=== PATIENT | male | born 1955 | race Caucasian/White ===

== ENCOUNTER 2016-12-29 10:54 | Inpatient (IN) | payer OTHER, MEDICARE ==
[~2016-12-29] VITALS: Ht 180.3 cm; Wt 63.5 kg
[~2016-12-29 10:54] MED LIST: CYCLOPHOSPHAMIDE1 GM IV; CYMBALTA30 M1 PO; KLONOPIN0.5 M1 PO; LUNESTA3 M1 PO; PERCOCET 10-321 EACH PO; SILENOR6 M1 PO; STEROID IV
--- NOTE | 2016-12-29 11:08 | NUR ---
PT STATES THAT HE HAS HAD CHRONIC PAIN X 3 MONTHS IN HIS ABD. PT HAS HISTORY OF MS AND CHRONIC BACK PAIN. TAKES PERCOCET FOR PAIN. NAUSEA.PT ALSO STATES THAT HE HAS BLOOD IN HIS URINE
--- NOTE | 2016-12-29 11:23 | NUR ---
PA AT BEDSIDE
--- NOTE | 2016-12-29 11:25 | ED GI/GU/ABDOMINAL COMPLAINT ---
History of Present Illness General Chief Complaint: Abdominal Pain/Flank Pain Stated Complaint: ABD/FLANK PAIN,HEMATURIA Source: patient, family, old records Exam Limitations: no limitations Vital Signs & Intake/Output Vital Signs & Intake/Output Vital Signs Date Time Temp Pulse Resp B/P Pulse O2 O2 Flow FiO2 Ox Delivery Rate 12/29 1344 98.6 102 18 112/88 97 Room Air 12/29 1107 97.9 120 18 118/90 96 Room Air Allergies Coded Allergies: NO KNOWN ALLERGIES (NO) (06/05/16) Reconcile Medications Clonazepam (Klonopin) 0.5 MG TABLET 0.5 TAB PO TID NERVES (Reported) Cyclophosphamide (Unknown Strength) VIAL (Unknown Dose) IV Q30D MS (Reported) Doxepin HCl (Silenor) 6 MG TABLET 0.5 TAB PO QPM SLEEP (Reported) Duloxetine Hydrochloride (Cymbalta) 30 MG CAPSULE.DR 1 CAP PO BID NERVE PAIN (Reported) Eszopiclone (Lunesta) 3 MG TABLET 1 TAB PO QPM SLEEP (Reported) Oxycodone HCl/Acetaminophen (Percocet 10-325 MG Tablet) 1 EACH TABLET 1 TAB PO Q4H PRN PAIN (Reported) [STEROID] WITH CYTOXAN FOR MS (Reported) Triage Note: PT STATES THAT HE HAS HAD CHRONIC PAIN X 3 MONTHS IN HIS ABD. PT HAS HISTORY OF MS AND CHRONIC BACK PAIN. TAKES PERCOCET FOR PAIN. NAUSEA. Triage Nurses Notes Reviewed? yes Onset: Gradual Duration: worse persistent since (1 day, going for 3 month) Timing: recent history Quality/Severity: sharpness, severe, stabbing Severity Numbers: 9 Location: epigastric, periumbilical Radiation: back Activities at Onset: none Prior Abdominal Problems: none Past Sexual History: Unobtainable at this time No Modifying Factors: none HPI: Patient is a 61-year-old male with history of MS, cholecystectomy 7 years ago presenting to the emergency department with chief complaint of epigastric pain that's been on and off for the past 2-3 months worse since last night. He is currently on pain management and has been taking Percocet for his regular pain which has not been helping his abdominal pain. He has associated nausea but no vomiting. Denies any change in bowel habits. He reports tactile fevers last night, did not take anything for fever. Denies any urinary frequency urgency or dysuria. He does report hematuria that started 2 days ago. Remote history of kidney stones. He does report decreased by mouth intake In the past 3-4 days. No sick contacts or recent travel. He received an IV steroid infusion for his MS this past week. Denies any history of pancreatitis. He does not drink alcohol. (ARACELI KAN) Past History Travel History Traveled to [place] past 21 day No Medical History Any Pertinent Medical History? 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 No (ARACELI KAN) Review of Systems Review of Systems Constitutional: Reports: see HPI, fever. Comments Review of systems: See HPI, All other systems negative. Constitutional, no weight loss HEENT: No visual changes no sore throat no congestion Cardiovascular: No chest pain ,palpitation , orthopnea or ankle swelling Skin, no jaundice no rashes Respiratory: No dyspnea cough sputum or hemoptysis GI:no vomiting : No dysuria Muscle skeletal: no neck pain, Neurologic: No numbness no confusion no rodríguez Psych: No stress anxiety or depression,. Heme/endocrine: No bruising no bleeding no polyuria or polydipsia Immunology: No splenectomy or history of AIDS (ARACELI KAN) Physical Exam Physical Exam General Appearance: no apparent distress, alert, awake, thin Gastrointestinal: normal bowel sounds, soft, tenderness Comments: Well-developed well-nourished person in no acute distress HEENT:Pupils equally round and reactive to light and accommodation. Nose is atraumatic. Neck: Normal inspection, full range of motion Back: Right CVA tenderness only, Full range of motion Cardiovascular: Regular rate and rhythms no murmurs rubs or gallops, normal JVP Respiratory: Chest nontender. No respiratory distress.breath sounds clear to auscultation bilaterally Abdomen: Soft, thin, nontender to palpation in the epigastric region, no rebound or guarding. Nondistended, no appreciable organomegaly. Normal bowel sounds. No ascites. No palpable masses. Extremity: No edema Neuro: Alert oriented x3 Skin: No appreciable rash on exposed skin, skin is warm and dry. Psych: Mood and affect is normal, memory and judgment is normal. Core Measures ACS in differential dx? No Severe Sepsis Present: No Septic Shock Present: No (NILAY RACHEL,ARACELI) Progress Differential Diagnosis: UTI/pyelo, choledocholithiasis, cholangitis, pancreatitis, dehydration, electrolyte abnormality, gastritis, multiple sclerosis flare Plan of Care: Orders Procedure Date/time Status Nothing by Mouth 12/29 D Active OXYGEN SETUP (GEN) 12/29 144 Active Saline Lock 12/29 1447 Active Admit to inpatient 12/29 1447 Active Vital Signs 12/29 1447 Active Activity/Ambulation 12/29 1447 Active Code Status 12/29 1447 Active Patient Data 12/29 1445 Active LACTIC ACID 12/29 1425 Complete Add-on Test (ER Only) 12/29 1313 Active BLOOD CULTURE 12/29 1225 Active EKG 12/29 1219 Active Add-on Test (ER Only) 12/29 1218 Active TROPONIN LEVEL 12/29 1138 Complete TRIGLYCERIDES 12/29 1138 Complete DIRECT BILIRUBIN 12/29 1138 Complete LIPASE 12/29 1125 Complete LACTIC ACID 12/29 1125 Complete COMPREHENSIVE METABOLIC PANEL 12/29 1125 Complete CBC WITHOUT DIFFERENTIAL 12/29 1125 Complete AMYLASE 12/29 1125 Complete URINALYSIS 12/29 1109 Complete Laboratory Tests 12/29/16 1439: Lactic Acid 0.8 12/29/16 1416: Urinalysis LIGHT H, Urine Color INNA, Urine Clarity CLEAR, Urine pH 7.0, Ur Specific [place] 1.020, Urine Protein TRACE H, Urine Ketones NEG, Urine Nitrite NEG, Urine Bilirubin POS@ICTO H, Urine Urobilinogen 1.0, Ur Leukocyte Esterase NEG, Ur Microscopic SEDIMENT EXAMINED, Urine RBC 1-3, Urine WBC RARE, Ur Epithelial Cells FEW, Urine Bacteria RARE H, Urine Mucus FEW, Urine Hemoglobin TRACE-INTACT H, Urine Glucose NEG 12/29/16 1138: Anion Gap 14, Estimated GFR 56 L, BUN/Creatinine Ratio 17.7, Glucose 136 H, Lactic Acid 1.3, Calcium 9.5, Total Bilirubin 3.9 H, Direct Bilirubin 3.0 H, AST 178 H, ALT 400 H, Alkaline Phosphatase 132 H, Troponin I < 0.01, Total Protein 7.0, Albumin 4.0, Globulin 3.0, Albumin/Globulin Ratio 1.3, Triglycerides 114, Amylase 529 H, Lipase 2962 H, CBC w Diff NO MAN DIFF REQ, RBC 4.96, MCV 92.5, MCH 30.7, RDW 14.7 H, MPV 9.1, Gran % 87.7 H, Lymphocytes % 3.8 L, Monocytes % 7.8, Eosinophils % 0.5, Basophils % 0.2, Absolute Granulocytes 12.5 H, Absolute Lymphocytes 0.5 L, Absolute Monocytes 1.1 H, Absolute Eosinophils 0.1, Absolute Basophils 0, PUBS MCHC 33.2 Microbiology 12/29 1339 BLOOD: Blood Culture - RECD 12/29 1305 BLOOD: Blood Culture - RECD Diagnostic Imaging: Viewed by Me: CT Scan, Ultrasound. Discussed w/RAD: CT Scan, Ultrasound. Radiology Impression: PATIENT: LACEY SAUCEDA PRESENT AGE: 61 PATIENT ACCOUNT NO: [id number] : 54 LOCATION: [facility] ORDERING PHYSICIAN: ARACELI RACHEL SERVICE DATE: 12/29/16 EXAM TYPE: CAT - CT ABD & PELVIS W/O IV CONTRAS EXAMINATION: CT ABDOMEN AND PELVIS WITHOUT CONTRAST CLINICAL INFORMATION: 61-year-old man with flank pain and hematuria. COMPARISON: 04/09/2015 CT TECHNIQUE: Multidetector volumetric imaging was performed from the superior aspect of the liver through the pubic symphysis. Sagittal and coronal reformatted images were obtained on the technologist's workstation. DLP: 258 mGy-cm FINDINGS: There is centrilobular emphysema seen at the lung bases with a large bulla at the right base. Multiple nonobstructive calculi are again seen within both kidneys including a 1 cm calculus in the left lower pole and a 2 mm calculus in the right midpole. There is perinephric stranding, but no hydroureteronephrosis on either side. A hypodense lesion in the left lobe of the liver is again noted and likely reflects a cyst. The spleen , pancreas, and right adrenal remain normal in their noncontrast appearance. There is mild fullness of the left adrenal gland. There is at least one stone in an otherwise noninflamed gallbladder. Nondilated loops of large and small bowel are unremarkable in appearance. The appendix and terminal ileum are not inflamed. There is mild prostatomegaly. The bladder is normal in appearance. There is a large Schmorl's node at the superior L5 endplate and there has been prior L5-S1 interbody fusion. IMPRESSION: Stable CT appearance of the abdomen, again demonstrating multiple nonobstructive renal calculi. No evidence of an acute intra-abdominal process. DICTATED BY: JUSTO PIÑA MD DATE/TIME DICTATED:1229 PROFESSOR OF VIOLIN:KELLE DATE/TIME TRANSCRIBED:12/29/161229 CONFIDENTIAL, DO NOT COPY WITHOUT APPROPRIATE AUTHORIZATION. <Electronically signed in Other Vendor System> Initial ED EKG: SINUS RHYTHM AT 88 BPM, LEFT AXIS DEVIATION Prior EKG: unchanged Comments: 12/29/2016 12:38:13 PM patient informed of all lab work results, still pending CT and ultrasound results. He does have pancreatitis with elevation in LFTs and bilirubin. So pending direct bili and triglyceride level. Patient does have remote history of cholecystectomy, patient can have residual stones. Secondary to elevation of white blood cell count, reports of fevers and elevated bilirubin patient will be treated prophylactically with Unasyn at this time. Pain is controlled after IV fluids and morphine. 12/29/2016 1:15:[address] does not show any acute intraductal stone. Direct bilirubin is elevated, triglyceride levels within normal range. STILL pending ultrasound results. 12/29/2016 2:40:42 PM patient pain is under control. I spoke with Dr. Vu, patient will be admitted to medicine for pancreatitis. He is concerned about a residual stone in the common bile duct although none noted on imaging today. Patient was noted with Unasyn, pain controlled. [facility] would be an MRCP at this time. Dr. Vu would like to keep this patient admitted to [facility] and if needed they will do an ERCP as MRI is gone for today and not back until Saturday. Patient aware of this plan and agreeable and compliant. 12/29/2016 2:41:42 PM spoke with radiologist who read the report, he does report that patient has a gallbladder which is somewhat conflicting with history of cholecystectomy in 2009. Further clarification needed. (ARACELI KAN) Departure Departure Time of Disposition: 6 Disposition: STILL A PATIENT Condition: Stable Clinical Impression Primary Impression: Pancreatitis Qualifiers: Chronicity: acute Pancreatitis type: unspecified pancreatitis type Acute pancreatitis complication: unspecified Qualified Code: K85.90 - Acute pancreatitis without necrosis or infection, unspecified Referrals: Lashell MARK MD (PCP/Family) Departure Forms: Customer Survey General Discharge Information Admission Note Spoke With: NEENA ALDANA MD Documentation of Exam: Documentation of any treatments & extenuating circumstances including Concerns Regarding Discharge (functional status, medication knowledge or non-compliance, living conditions, etc.) that warrant an admission rather than observation: Patient requiring IV hydration, nothing by mouth status, GI consultation, patient will likely require MRCP or ERCP. (ARACELI KAN) PA/RESIDENT CARE SPEC Co-Sign Statement Statement: ED Attending supervision documentation- x I saw and evaluated the patient. I have also reviewed all the pertinent lab results and diagnostic results. I agree with the findings and the plan of care as documented in the PA's/RESIDENT CARE SPEC's documentation. [] I have reviewed the ED Record and agree with the PA's/RESIDENT CARE SPEC's documentation. [] Additions or exceptions (if any) to the PAs/RESIDENT CARE SPEC's note and plan are summarized below: [] (SAI WOO MD) Critical Care Note Critical Care Note Critical Care Time: 30-74 min (ARACELI KAN)
--- NOTE | 2016-12-29 11:32 | NUR ---
PT EVALUATED AND IV PLACED, PT STATES THAT LAST BM WAS THIS AM AND NORMAL FOR HIM. DENIES ABD PAIN ON LIGHT PALPATION.
--- NOTE | 2016-12-29 11:38 | NUR ---
PT MEDICATED AT THIS TIME FOR 7 ABD PAIN
--- NOTE | 2016-12-29 11:41 | NUR ---
BLOOD DRAWN AND SENT TO LAB BY THIS MST (BLUE, SST, IZAGUIRRE, PINK, LAV)
[2016-12-29 11:50] LABS: ABSOLUTE BASOPHIL COUNT 0 /CUMM (0.0-0.2); ABSOLUTE EOSINOPHIL COUNT 0.1 /CUMM (0.0-0.7); ABSOLUTE GRANULOCYTE CT 12.5 /CUMM (1.4-6.5); ABSOLUTE LYMPH COUNT 0.5 /CUMM (1.2-3.4); ABSOLUTE MONOCYTE COUNT 1.1 /CUMM (0.10-0.60); BASOPHIL % 0.2 % (0.0-2.0); EOSINOPHIL % 0.5 % (0-5); GRANULOCYTE % 87.7 % (42.2-75.2); MEAN CORPUSCULAR HGB 30.7 PG (27.0-31.0); MEAN CORPUSCULAR HGB CONC 33.2 G/DL (33.0-37.0); MEAN CORPUSCULAR VOLUME 92.5 FL (80.0-94.0); MEAN PLATELET VOLUME 9.1 FL (7.4-10.4); PLATELET COUNT 206 /CUMM (130-400); RBC DISTRIBUTION WIDTH 14.7 % (11.5-14.5); RED BLOOD CELL CT 4.96 /CUMM (4.70-6.10)
--- NOTE | 2016-12-29 12:08 | NUR ---
PT TO CT SCAN
[2016-12-29 12:22] LABS: HEMATOCRIT 45.8 % (42-52); WHITE BLOOD CELL COUNT 14.3 /CUMM (4.8-10.8)
--- NOTE | 2016-12-29 12:36 | NUR ---
PT TO GET IV ABT AFTER BC X 2 DRAWN AND SENT.
--- NOTE | 2016-12-29 12:41 | CT SCAN REPORT ---
EXAMINATION: CT ABDOMEN AND PELVIS WITHOUT CONTRAST CLINICAL INFORMATION: 61-year-old man with flank pain and hematuria. COMPARISON: 04/09/2015 CT TECHNIQUE: Multidetector volumetric imaging was performed from the superior aspect of the liver through the pubic symphysis. Sagittal and coronal reformatted images were obtained on the technologist's workstation. DLP: 258 mGy-cm FINDINGS: There is centrilobular emphysema seen at the lung bases with a large bulla at the right base. Multiple nonobstructive calculi are again seen within both kidneys including a 1 cm calculus in the left lower pole and a 2 mm calculus in the right midpole. There is perinephric stranding, but no hydroureteronephrosis on either side. A hypodense lesion in the left lobe of the liver is again noted and likely reflects a cyst. The spleen, pancreas, and right adrenal remain normal in their noncontrast appearance. There is mild fullness of the left adrenal gland. There is at least one stone in an otherwise noninflamed gallbladder. Nondilated loops of large and small bowel are unremarkable in appearance. The appendix and terminal ileum are not inflamed. There is mild prostatomegaly. The bladder is normal in appearance. There is a large Schmorl's node at the superior L5 endplate and there has been prior L5-S1 interbody fusion. IMPRESSION: Stable CT appearance of the abdomen, again demonstrating multiple nonobstructive renal calculi. No evidence of an acute intra-abdominal process.
--- NOTE | 2016-12-29 13:05 | NUR ---
PT TO US AT THIS TIME
--- NOTE | 2016-12-29 13:06 | NUR ---
SECOND SET CULTURES TO BE OBTAINED WHEN PT RETURNS FROM US
--- NOTE | 2016-12-29 13:42 | NUR ---
IV UNASYN INFUSING
--- NOTE | 2016-12-29 14:03 | ULTRASOUND REPORT ---
EXAMINATION: US ABDOMEN LIMITED CLINICAL INFORMATION: 61-year-old man with epigastric pain. COMPARISON: 12/29/[address] TECHNIQUE: Real-time imaging of the right upper quadrant abdominal viscera. FINDINGS: PANCREAS: Normal. LIVER: Multiple simple cysts are seen within the liver ranging up to 3.3 cm in diameter. Overall, there is increased echogenicity of the liver, consistent with mild fatty infiltration. There is no intrahepatic bile duct dilation. GALLBLADDER: There is a 1 cm nonobstructive calculus seen within the gallbladder. There is borderline thickening of the gallbladder wall, which measures about 3 mm. There is no pericholecystic fluid or sonographic Stewart's sign. COMMON BILE DUCT: Normal in caliber measuring 0.5 cm in diameter. RIGHT KIDNEY: Normal. No hydronephrosis. No renal calculi or focal parenchymal lesions. Incidental note is made of a 1 cm cyst in the lower pole. The kidney measures 10.9 cm in maximum dimension. FREE FLUID: None. IMPRESSION: There is cholelithiasis without convincing sonographic evidence of acute cholecystitis.
--- NOTE | 2016-12-29 14:20 | NUR ---
KCL INFUSING AT 100ML/HR FOR K+ OF 3.2. URINE SENT
--- NOTE | 2016-12-29 15:03 | NUR ---
PT AWARE THAT HE IS TO BE ADMITTED , PT RESTING ON STRETCHER TALKING ON PHONE AT THIS TIME
--- NOTE | 2016-12-29 15:21 | NUR ---
IV NS INFUSING AT 500 ML/HR
--- NOTE | 2016-12-29 15:26 | NUR ---
PT RESTING ON STRETCHER WITH LIGHTS DIMMED WATCHING TV AT THIS TIME, MID ABD PAIN 11/06, DENIES NAUSEA AT THIS TIME.
--- NOTE | 2016-12-29 15:53 | NUR ---
HOUSE STAFF AT BEDSIDE
--- NOTE | 2016-12-29 16:26 | NUR ---
PT HAS ROOM #210-2
--- NOTE | 2016-12-29 16:36 | NUR ---
CALLED FOR REPORT, ON HOLD FOR A COUPLE OF MINUTES WILL TRY AGAIN IN A FEW.
--- NOTE | 2016-12-29 16:42 | History & Physical ---
SUMAN SAHA,[facility] 12/29/16 1633: General Information and HPI MD Statement: I have seen and personally examined LACEY SAUCEDA and documented this H&P. The patient is a 61 year old M who presented with a patient stated chief complaint of [ABDOMINAL PAIN]. Source of Information: patient, EMS Exam Limitations: no limitations History of Present Illness: Patient is a 61 YO M with PMH significant for MS for the past 14yrs (follows ), chronic back pain came to the ER with intense abdominal pain for the past 24hrs. He has been experiencing abdominal pain since a long time which apparently worsened. He describes it radiating from epigastric region to the back. He does report nausea and anorexia, fever & chills, denies any shortness of breath. He denies any recent travel, eating outside, diarrhea. He never consumed alcohol / no substance abuse. Allergies/Medications Allergies: Coded Allergies: NO KNOWN ALLERGIES (NO) (06/05/16) Compliance With Home Meds: GOOD Past History Travel History Traveled to [place] past 21 day No Medical History Neurological: multiple sclerosis EENT: NONE Cardiovascular: NONE Respiratory: NONE Gastrointestinal: NONE Hepatic: NONE Renal: NONE Musculoskeletal: chronic back pain Psychiatric: NONE Endocrine: NONE Blood Disorders: NONE Cancer(s): NONE MANAGER LOCATION/Reproductive: NONE History of CDIFF: No Isolation History: Standard Surgical History Surgical History: CHOLECYSTECTOMY, KIDNEY STONES, PENUMOTHORAX 1988, BACK SURGERY Past Family/Social History Family History Relations & Conditions if any Relation not specified for: *No pertinent family history Psychosocial History Where do you live? Home Who Do You Live With? spouse Services at Home: None ETOH Use: denies use Illicit Drug Use: denies illicit drug use Functional Ability ADLs Independent: dressing, eating, toileting, bathing. Ambulation: independent IADLs Independent: shopping, housework, finances, food prep, telephone, transportation , medication admin. Sexual History Past Sexual History Unobtainable at this time Employment History Employment Employed Review of Systems Review of Systems Constitutional: Reports: see HPI. EENTM: Reports: see HPI. Cardiovascular: Reports: no symptoms. Respiratory: Reports: cough, sputum production. GI: Reports: abdominal pain, nausea. Denies: vomiting. Genitourinary: Reports: see HPI. Musculoskeletal: Reports: see HPI. Skin: Reports: see HPI. Neurological/Psychological: Reports: see HPI. Hematologic/Endocrine: Reports: see HPI. Immunologic/Allergic: Reports: see HPI. All Other Systems: Reviewed and Negative Exam & Diagnostic Data Last 24 Hrs of Vital Signs/I&O Vital Signs Date Time Temp Pulse Resp B/P Pulse O2 O2 Flow FiO2 Ox Delivery Rate 12/29 1526 97.9 98 18 143/84 98 Room Air 12/29 1344 98.6 102 18 112/88 97 Room Air 12/29 1107 97.9 120 18 118/90 96 Room Air Intake & Output 12/29 1600 12/29 0800 12/29 0000 Intake Total 2000 Output Total 420 Balance 1580 Intake, IV 2000 Output, Urine 420 Patient 60.328 kg Weight Physical Exam General Appearance Alert, Oriented X3, Cooperative Skin No Rashes, No Breakdown HEENT Atraumatic, PERRLA, EOMI Neck Supple, No JVD Cardiovascular Regular Rate, Normal S1, Normal S2, No Murmurs Lungs Clear to Auscultation, Normal Air Movement Abdomen Soft, No Tenderness, MILD EPIGASTRIC TENDERNESS, NO CVA TENDERNESS. NO REBOUND TENDERNESS. Neurological Normal Gait, Normal Speech Extremities No Clubbing, No Cyanosis, No Edema Vascular Normal Pulses, Pulses Symmetrical Body Front and Back (Adult) 1) ABDOMINAL PAIN Last 24 Hrs of Labs/Domo: Laboratory Tests 12/29/16 1439: Lactic Acid 0.8 12/29/16 1416: Urinalysis LIGHT H, Urine Color INNA, Urine Clarity CLEAR, Urine pH 7.0, Ur Specific [place] 1.020, Urine Protein TRACE H, Urine Ketones NEG, Urine Nitrite NEG, Urine Bilirubin POS@ICTO H, Urine Urobilinogen 1.0, Ur Leukocyte Esterase NEG, Ur Microscopic SEDIMENT EXAMINED, Urine RBC 1-3, Urine WBC RARE, Ur Epithelial Cells FEW, Urine Bacteria RARE H, Urine Mucus FEW, Urine Hemoglobin TRACE-INTACT H, Urine Glucose NEG 12/29/16 1138: Anion Gap 14, Estimated GFR 56 L, BUN/Creatinine Ratio 17.7, Glucose 136 H, Lactic Acid 1.3, Calcium 9.5, Total Bilirubin 3.9 H, Direct Bilirubin 3.0 H, AST 178 H, ALT 400 H, Alkaline Phosphatase 132 H, Troponin I < 0.01, Total Protein 7.0, Albumin 4.0, Globulin 3.0, Albumin/Globulin Ratio 1.3, Triglycerides 114, Amylase 529 H, Lipase 2962 H, CBC w Diff NO MAN DIFF REQ, RBC 4.96, MCV 92.5, MCH 30.7, RDW 14.7 H, MPV 9.1, Gran % 87.7 H, Lymphocytes % 3.8 L, Monocytes % 7.8, Eosinophils % 0.5, Basophils % 0.2, Absolute Granulocytes 12.5 H, Absolute Lymphocytes 0.5 L, Absolute Monocytes 1.1 H, Absolute Eosinophils 0.1, Absolute Basophils 0, PUBS MCHC 33.2 Microbiology 12/29 1339 BLOOD: Blood Culture - RECD 12/29 1305 BLOOD: Blood Culture - RECD Diagnostic Data EKG Results NSR Assessment/Plan Assessment: Patient is a 61 YO M with PMH significant for MS for the past 14yrs (follows ), chronic back pain, nephrolithiasis came to the ER with intense abdominal pain for the past 24hrs. ER Course Vital Signs T - 97.6, HR 120, BP 118/90mmHg on room air. Significant labs white count 14.3, Lipase of 2900, k of 3.2, Cr 1.3 LFT's show total bili of 3.9, direct bili 3.0, AST 178, ALT 400, ALP 132 Abdominal ultrasound IMPRESSION: There is cholelithiasis without convincing sonographic evidence of acute cholecystitis. CT abdomen and pelvis IMPRESSION: Stable CT appearance of the abdomen, again demonstrating multiple nonobstructive renal calculi. No evidence of an acute intra-abdominal process. Pancreatitis - suspected secodary to CBD stone * Clinical picture with elevated lipase - 2/3 criteria postive * Currently on RL @ 200ml/hr and NPO * Suspected secondary to gall stones in the setting of elevated liver enzymes, nonalcoholic picture. * GI consult placed * IF any signs of sepsis evident - need ERCP stat * avoid hepatotoxic drugs * Need to reassess need for fluids in the am. Anxiety/insomnia * On clonapin TID, Doxepin, Duloxetin, Zolpidem tartarate - we will continue PO meds for now. DVT Prophylaxis * SC heparin Code Status * Full Code As Ranked By This Provider Problem List: 1. Pancreatitis Qualifiers Chronicity: acute Pancreatitis type: unspecified pancreatitis type Acute pancreatitis complication: unspecified Qualified Code: K85.90 - Acute pancreatitis without necrosis or infection, unspecified Core Measures/Miscellaneous Acute Coronary Syndrome ACS Diagnosis: No Cerebrovascular Accident CVA/TIA Diagnosis: No Congestive Heart Failure CHF Diagnosis: No Venous Thromboembolism VTE Risk Factors: Immobility, paresis No [facility] VTE prophylaxis d/t: No contraindications No VTE Pharm Prophylaxis d/t: No contraindications VTE Diagnosis: No VTE Type: NONE VTE Confirmed by (Test): NONE Severe Sepsis Severe Sepsis Present: No Septic Shock Septic Shock Present: No Miscellaneous Documentation Attending Case Discussed With: NEENA ALDANA MD Primary Care Physician: Lashell MARK MD Patient sees these Specialists Dr.Guarnaica Montes Level of Patient Care: General Medicine NEENA LADANA MD 12/29/16 1717: Attending MD Review Statement Attending Statement Attending MD Statement: examined this patient, discuss w/resident/PA/APPLICATION INTEGRATION ENGINEER, agreed w/resident/PA/APPLICATION INTEGRATION ENGINEER, reviewed EMR data (avail), discussed with nursing, reviewed images, amended to note Attending Assessment/Plan: 61-year-old male with past medical history significant for multiple sclerosis, chronic kidney disease stage III, chronic back pain on Percocet, status post cholecystectomy 7 years ago who is presenting with abdominal pain. Patient has been getting these intermittent pain with increasing frequency in from last 1 week the pain has been almost constant specially in the last 1-2 days it has been very excruciating. Patient rates the pain as 8 out of 10 and describes it as sharp. He is describing the pain as radiating to his back. He was nauseous but no vomiting. He also reports feeling warm but did not check his temperature. He had no appetite. He also reports dark urine. He denies eating out or any traveling. In the emergency room patient found to have abnormal LFTs and normal lipase. He also had leukocytosis although no fevers documented in the emergency room. Patient received morphine in the emergency room and currently pain-free. Vital Signs Date Time Temp Pulse Resp B/P Pulse O2 O2 Flow FiO2 Ox Delivery Rate 12/29 1654 98.0 88 18 140/78 98 Room Air 12/29 1526 97.9 98 18 143/84 98 Room Air 12/29 1344 98.6 102 18 112/88 97 Room Air 12/29 1107 97.9 120 18 118/90 96 Room Air on exam; aox3, nad. cv; s1,s2, rrr. resp; clear abd; soft, nt, bs+ ext; no edema. Laboratory Tests 12/29 12/29 1439 1416 Chemistry Lactic Acid (0.7 - 2.1 mmol/L) 0.8 Urines Urinalysis LIGHT H Urine Color (YEL,AMB,STR) INNA Urine Clarity (CLEAR) CLEAR Urine pH (5.0 - 8.0) 7.0 Ur Specific [place] (1.001 - 1.035) 1.020 Urine Protein (NEG,<30 MG/DL) TRACE H Urine Ketones (NEG) NEG Urine Nitrite (NEG) NEG Urine Bilirubin (NEG) POS@ICTO H Urine Urobilinogen (0.1 - 1.0 EU/dl) 1.0 Ur Leukocyte Esterase (NEG) NEG Ur Microscopic SEDIMENT EXAMINED Urine RBC (0 - 5 /HPF) 1-3 Urine WBC (0 - 2 /HPF) RARE Ur Epithelial Cells (NONE,FEW) FEW Urine Bacteria (NEG/NONE) RARE H Urine Mucus (FEW,NONE) FEW Urine Hemoglobin (NEG) TRACE-INTACT H Urine Glucose (N MG/DL) NEG 12/29 1138 Chemistry Sodium (137 - 145 mmol/L) 143 Potassium (3.5 - 5.1 mmol/L) 3.2 L Chloride (98 - 107 mmol/L) 102 Carbon Dioxide (22 - 30 mmol/L) 28 Anion Gap (5 - 16) 14 BUN (9 - 20 mg/dL) 23 H Creatinine (0.7 - 1.2 mg/dL) 1.3 H Estimated GFR (>60 ml/min) 56 L BUN/Creatinine Ratio (7 - 25 %) 17.7 Glucose (65 - 99 mg/dL) 136 H Lactic Acid (0.7 - 2.1 mmol/L) 1.3 Calcium (8.4 - 10.2 mg/dL) 9.5 Total Bilirubin (0.2 - 1.3 mg/dL) 3.9 H Direct Bilirubin (< 0.4 mg/dL) 3.0 H AST (17 - 59 U/L) 178 H ALT (21 - 72 U/L) 400 H Alkaline Phosphatase (< 127 U/L) 132 H Troponin I (<0.11 ng/ml) < 0.01 Total Protein (6.3 - 8.2 g/dL) 7.0 Albumin (3.5 - 5.0 g/dL) 4.0 Globulin (1.9 - 4.2 gm/dL) 3.0 Albumin/Globulin Ratio (1.1 - 2.2 %) 1.3 Triglycerides (<150 mg/dL) 114 Amylase (30 - 110 U/L) 529 H Lipase (23 - 300 U/L) 2962 H Hematology CBC w Diff NO MAN DIFF REQ WBC (4.8 - 10.8 /CUMM) 14.3 H RBC (4.70 - 6.10 /CUMM) 4.96 Hgb (14.0 - 18.0 G/DL) 15.2 Hct (42 - 52 %) 45.8 MCV (80.0 - 94.0 FL) 92.5 MCH (27.0 - 31.0 PG) 30.7 RDW (11.5 - 14.5 %) 14.7 H Plt Count (130 - 400 /CUMM) 206 MPV (7.4 - 10.4 FL) 9.1 Gran % (42.2 - 75.2 %) 87.7 H Lymphocytes % (20.5 - 51.1 %) 3.8 L Monocytes % (1.7 - 9.3 %) 7.8 Eosinophils % (0 - 5 %) 0.5 Basophils % (0.0 - 2.0 %) 0.2 Absolute Granulocytes (1.4 - 6.5 /CUMM) 12.5 H Absolute Lymphocytes (1.2 - 3.4 /CUMM) 0.5 L Absolute Monocytes (0.10 - 0.60 /CUMM) 1.1 H Absolute Eosinophils (0.0 - 0.7 /CUMM) 0.1 Absolute Basophils (0.0 - 0.2 /CUMM) 0 PUBS MCHC (33.0 - 37.0 G/DL) 33.2 All imaging studies reviewed. A/P; 61-year-old male with past medical history significant for multiple sclerosis, chronic back pain on Percocet, status post cholecystectomy 7 years ago admitted with abdominal pain and nausea, abnormal LFTs, abnormal lipase as well as leukocytosis likely secondary to acute pancreatitis with possible cholangitis or retained stone. Patient admitted to medicine floor. He will be hydrated with IV fluids. He will be kept nothing by mouth and will be treated symptomatically for pain management as well as nausea. GI will be consulted. Patient will need MRCP and if becomes symptomatic or septic then might require urgent ERCP. Will avoid any hepatotoxic medications. Continue the rest of his home meds. DVT prophylaxis: Heparin subcutaneous. Patient is a full code CEE STEIN MDTHA 12/29/16 1244: General Information and HPI Allergies/Medications Home Med list Amoxicillin/Potassium Clav (Augmentin 875-125 Tablet) 875 MG-125 MG TABLET 1 TAB PO BID gastrointestinal infection Clonazepam (Klonopin) 0.5 MG TABLET 0.5 TAB PO TID NERVES (Reported) Cyclophosphamide (Unknown Strength) VIAL (Unknown Dose) IV Q30D MS (Reported) Doxepin HCl (Silenor) 6 MG TABLET 0.5 TAB PO QPM SLEEP (Reported) Duloxetine Hydrochloride (Cymbalta) 30 MG CAPSULE.DR 1 CAP PO BID NERVE PAIN (Reported) Eszopiclone (Lunesta) 3 MG TABLET 1 TAB PO QPM SLEEP (Reported) Oxycodone HCl/Acetaminophen (Percocet 10-325 MG Tablet) 1 EACH TABLET 1 TAB PO Q4H PRN PAIN (Reported) [STEROID] WITH CYTOXAN FOR MS (Reported) Resident Review Statement Resident Statement: examined this patient, discussed with software intern, agreed with software intern, discussed with family, reviewed EMR data (avail), discussed with nursing Other Findings: 61-year-old male with past medical history of multiple sclerosis, chronic back pain following a pain management presents to the ED with complaints of abdominal pain which is been chronic over the last 1 year, but recently worsened with a severe intensity over the last 24 hours. Also complains of fever, chills last night. Not an alcoholic, no drug abuse history, no new medications, no recent travel. Please followed H&P for vitals and labs. Assessment and plan 1. Abdominal pain due to Pancreatitis elevated liver enzymes and lipase along with fever possible cholangitis: Admit patient to general medical floor, hemodynamically stable. Keep patient nothing by mouth for anticipation of ERCP if needed. Continue IV Unasyn. Blood cultures pending. Will continue with adequate pain medications and IV fluids with ins and outs monitoring Will reassess fluids and next 8 hours. BISAP score on admission is 1. Will await further recommendation by GI. 2. Chronic back pain: We will continue on his by mouth medications and keep him on IV morphine. 3. Multiple sclerosis: Follows Dr. Lane. Has multiple sclerosis for over 15 years. Takes monthly Cytoxin and steroids. His dose was . Never been admitted for MS exacerbations in the past DVT prophylaxis with subcutaneous heparin Full CODE STATUS
--- NOTE | 2016-12-29 17:02 | NUR ---
REPORT TO ARMIN
[2016-12-29 17:23] VITALS: BP 158/84
[2016-12-29 17:24] VITALS: BP 158/84
--- NOTE | 2016-12-29 18:55 | NUR ---
PATIENT ARRIVED TO FLOOR AT 1715, FROM ER, DX PANCREATITIS VS 98.9 70 20 158/84 100% ROOM AIR PT A&O, LCTA, MILD DISCOMFORT TO ABD, INDEPENDENT-WALKED TO BED FROM W/C HX OF FALLS D/T MS, BED ALARM ON BED, PT STATES HE WILL CALL FOR ASSISTANCE, WILL PLUG IN AT NIGHT NPO FOR POSSIBLE ERCP IN MORNING #20 IV TO LF WITH LR @ 200 ML/HR RUNNING ORIENTED TO ROOM AND CALL [facility] QUESTIONING MEDS-LASHAWN, OSCAR AND NORA-ON MED REC, NOT ON EMAR YET SPOKE WITH ZACHARY, WHO STATED SHE WILL TAKE CARE OF-CONTINUE TO MONITOR.
[2016-12-29 22:45] VITALS: BP 134/80
--- NOTE | 2016-12-29 22:55 | NUR ---
PATIENT'S OWN LUNESTA LOCKED IN PHARMACY PAPERWORK COMPLETED, IN CHART.
[2016-12-30 06:40] VITALS: BP 130/72
--- NOTE | 2016-12-30 06:48 | NUR ---
NOTIFIED # 420 OF P'S T 100.8. WILL CONTINUE TO MONITOR
--- NOTE | 2016-12-30 07:59 | PN- Housestaff ---
See Addendum Subjective Follow-up For: Pancreatitis Subjective: Patient reports feeling much better compared to yesterday. He endorses mild pain in the abdomen diffusely but it's under control. He spiked a fever of 100.8 this morning but feels well overall with no new complaints. One of the blood cxs growing GNR. Denies any n/v. He is hungry and would like to eat soon. Review of Systems Constitutional: Reports: see HPI. Objective Last 24 Hrs of Vital Signs/I&O Vital Signs Date Time Temp Pulse Resp B/P Pulse O2 O2 Flow FiO2 Ox Delivery Rate 12/30 0640 100.8 92 20 130/72 95 03/04 2245 98.3 89 20 134/80 97 Room Air 03/ 1724 98.9 70 20 158/84 100 Room Air 03/ 1723 98.9 70 20 158/84 100 Room Air 03/ 1654 98.0 88 18 140/78 98 Room Air 03/04 1526 97.9 98 18 143/84 98 Room Air 03/04 1344 98.6 102 18 112/88 97 Room Air 03/04 1107 97.9 120 18 118/90 96 Room Air Intake & Output / 1600 03/05 0800 03/05 0000 Intake Total 1600 1220 Output Total 1200 625 Balance 400 595 Intake, IV 1600 1100 Intake, Oral 120 Output, Urine 1200 625 Patient 63.503 kg Weight Physical Exam General Appearance: Alert, Oriented X3, Cooperative Other Physical Findings: Skin No Rashes, No Breakdown HEENT Atraumatic, PERRLA, EOMI Neck Supple, No JVD Cardiovascular Regular Rate, Normal S1, Normal S2, No Murmurs Lungs Clear to Auscultation, Normal Air Movement Abdomen Soft, No Tenderness, MILD EPIGASTRIC TENDERNESS, NO CVA TENDERNESS. NO REBOUND TENDERNESS. Neurological Normal Gait, Normal Speech Extremities No Clubbing, No Cyanosis, No Edema Vascular Normal Pulses, Pulses Symmetrical Current Medications: Current Medications Sig/Arun Start time Last Medication Dose Route Stop Time Status Admin Ampicillin Sodium/ 3,000 MG Q6H 12/29 2000 AC 12/30 Sulbactam Sodium IV 0821 Sodium Chloride 100 ML Ampicillin Sodium/ 3,000 MG Q6 12/29 1800 DC Sulbactam Sodium IV Sodium Chloride 100 ML Ampicillin Sodium/ 3,000 MG ONCE ONE 03/04 1230 DC 0304 Sulbactam Sodium IV 12/29 1259 1340 Sodium Chloride 100 ML Ampicillin Sodium/ 0 .STK-MED ONE 12/29 1230 DC Sulbactam Sodium .ROUTE Clonazepam 0.25 MG TID 12/29 1853 AC 12/30 PO 01/05 1852 0821 Doxepin HCl 3 MG AT BEDTIME 12/29 2200 AC 12/29 PO 2118 Duloxetine HCl 30 MG BID 12/29 220 AC 12/30 PO 0820 Heparin Sodium 5,000 UNIT Q8 12/29 1651 AC 12/30 (Porcine) SC 0556 Lactated Ringer's 1,000 ML Q5H 12/29 1700 AC 12/30 IV 0821 Lidocaine 1 PAT Q24 PRN 12/29 1700 AC 12/29 EXT 1956 Morphine Sulfate 2 MG Q4P PRN 12/29 1700 AC 12/30 IV 0556 Morphine Sulfate 0 .STK-MED ONE 12/29 1137 DC .ROUTE Morphine Sulfate 4 MG ONCE ONE 12/29 1130 DC 12/29 IV 12/29 1131 1137 Non-Formulary 0 SEE ADMIN CRITERIA 12/29 1900 CAN Medication ANY Oxycodone HCl 5 MG Q12 PRN 12/29 1700 AC 12/29 PO 2002 Potassium Chloride 40 MEQ ONCE ONE 12/29 1915 DC 03/04 PO 12/29 1916 1950 Potassium Chloride 10 MEQ Q1H 12/29 1645 DC 03/ IV 12/29 1746 2315 Potassium Chloride 10 MEQ ONCE ONE 12/29 1400 DC 03/ IV / 1401 1420 Sodium Chloride 1,000 ML BOLUS ONE 12/29 1515 DC 03/04 IV 03/ 1714 1521 Sodium Chloride 1,000 ML BOLUS ONE 12/29 1230 DC 03/04 IV / 1429 1226 Sodium Chloride 1,000 ML BOLUS ONE 12/29 1130 DC 03/ IV / 1329 1137 Zolpidem Tartrate 5 MG AT BEDTIME 12/29 220 AC 12/29 PO 2117 Last 24 Hrs of Lab/Domo Results Last 24 Hrs of Labs/Mics: Laboratory Tests 12/30/16 0625: Anion Gap 6, Estimated GFR > 60, BUN/Creatinine Ratio 16.7, Total Bilirubin 1.9 H, Direct Bilirubin 1.0 H, AST 59, ALT 204 H, Alkaline Phosphatase 101, Total Protein 5.3 L, Albumin 2.8 L, CBC w Diff Pending, WBC Pending, RBC Pending, Hgb Pending, Hct Pending, MCV Pending, MCH Pending, RDW Pending, Plt Count Pending, MPV Pending, PUBS MCHC Pending 12/29/16 1439: Lactic Acid 0.8 12/29/16 1416: Urinalysis LIGHT H, Urine Color INNA, Urine Clarity CLEAR, Urine pH 7.0, Ur Specific [place] 1.020, Urine Protein TRACE H, Urine Ketones NEG, Urine Nitrite NEG, Urine Bilirubin POS@ICTO H, Urine Urobilinogen 1.0, Ur Leukocyte Esterase NEG, Ur Microscopic SEDIMENT EXAMINED, Urine RBC 1-3, Urine WBC RARE, Ur Epithelial Cells FEW, Urine Bacteria RARE H, Urine Mucus FEW, Urine Hemoglobin TRACE-INTACT H, Urine Glucose NEG 12/29/16 1138: Anion Gap 14, Estimated GFR 56 L, BUN/Creatinine Ratio 17.7, Glucose 136 H, Lactic Acid 1.3, Calcium 9.5, Total Bilirubin 3.9 H, Direct Bilirubin 3.0 H, AST 178 H, ALT 400 H, Alkaline Phosphatase 132 H, Troponin I < 0.01, Total Protein 7.0, Albumin 4.0, Globulin 3.0, Albumin/Globulin Ratio 1.3, Triglycerides 114, Amylase 529 H, Lipase 2962 H, CBC w Diff NO MAN DIFF REQ, RBC 4.96, MCV 92.5, MCH 30.7, RDW 14.7 H, MPV 9.1, Gran % 87.7 H, Lymphocytes % 3.8 L, Monocytes % 7.8, Eosinophils % 0.5, Basophils % 0.2, Absolute Granulocytes 12.5 H, Absolute Lymphocytes 0.5 L, Absolute Monocytes 1.1 H, Absolute Eosinophils 0.1, Absolute Basophils 0, PUBS MCHC 33.2 Microbiology 12/29 1339 BLOOD: Blood Culture - RES GRAM NEGATIVE RODS 12/29 1305 BLOOD: Blood Culture - RECD Assessment/Plan Assessment: Patient is a 61 YO M with PMH significant for MS for the past 14yrs (follows ), chronic back pain, nephrolithiasis came to the ER with intense abdominal pain for the past 24hrs. Pancreatitis - suspected secodary to CBD stone On admission clinical picture with elevated lipase concerning for pancreatitis - 2/3 criteria postive. Suspected secondary to gall stones in the setting of elevated liver enzymes, nonalcoholic picture. 12/30: one of the blood cultures growing GNR. pt had a temp of 100.8 this morning. * Decrease RL to 150ml/hr * Advance diet to full liquid * Cont IV Unasyn * GI consulted, recs pending * If any signs of sepsis evident - need ERCP stat * Avoid hepatotoxic drugs Anxiety/insomnia * On clonapin TID, Doxepin, Duloxetin, Zolpidem tartarate - we will continue PO meds for now. DVT Prophylaxis * SC heparin Code Status * Full Code Problem List: 1. Pancreatitis Pain Ratin Pain Location: Diffuse abdomen Pain Goal: Remain pain free Pain Plan: Mild pathway Tomorrow's Labs & Rationales: CBC BEP
[2016-12-30 08:15] LABS: ABSOLUTE BASOPHIL COUNT 0 /CUMM (0.0-0.2); ABSOLUTE EOSINOPHIL COUNT 0.1 /CUMM (0.0-0.7); ABSOLUTE GRANULOCYTE CT 8.8 /CUMM (1.4-6.5); ABSOLUTE LYMPH COUNT 0.4 /CUMM (1.2-3.4); ABSOLUTE MONOCYTE COUNT 0.8 /CUMM (0.10-0.60); BASOPHIL % 0 % (0.0-2.0); EOSINOPHIL % 0.5 % (0-5); GRANULOCYTE % 87.9 % (42.2-75.2); MEAN CORPUSCULAR HGB CONC 33.8 G/DL (33.0-37.0); MEAN CORPUSCULAR VOLUME 91.6 FL (80.0-94.0); MEAN PLATELET VOLUME 9.4 FL (7.4-10.4); PLATELET COUNT 148 /CUMM (130-400); RBC DISTRIBUTION WIDTH 14.6 % (11.5-14.5); RED BLOOD CELL CT 3.82 /CUMM (4.70-6.10)
--- NOTE | 2016-12-30 11:48 | Cons- Gastroenterology ---
General Information and HPI Consulting Request Date of Consult: 12/30/16 ([facility]/GASTROENTEROLOGY) Requested By: KATYA SAHA,NEENA Reason for Consult: Abdominal pain, elevated liver enzymes/hyperbilirubinemia Source of Information: patient History of Present Illness: 61-year-old male with multiple sclerosis (Yeyo Rick MD, on pulse cyclophosphamide therapy), and diffuse body pains (pain management, Dr. Sy). He had a complicated cholecystectomy 2009, requiring conversion from laparoscopic to open, and his cystic duct was tied off but part of the gallbladder left intact, including stones. For the last couple of years he's had episodes of upper abdominal pain radiating to the back, lasting perhaps 45 minutes. These have become more frequent, and slightly more severe. He now has had his longest episode, lasting 24 hours, accompanied by nausea, fever and chills. His urine became dark. He did not note yellowing of his eyes or skin. At this time he is much better, and has some upper abdominal soreness only. Past medical history is negative for known liver disease, frequent indigestion, other abdominal pain. His bowel movements are regular, and without blood or black stool. He has no dysphagia, recurrent nausea, unexplained weight loss. Family history positive for stomach cancer (mother). Negative for liver disease , pancreatic disease, colon cancer. Social history: Positive tobacco, negative alcohol. Remote drug use including cocaine. Positive tattoos. Allergies/Medications Allergies: Coded Allergies: NO KNOWN ALLERGIES (NO) (06/05/16) Home Med List: Clonazepam (Klonopin) 0.5 MG TABLET 0.5 TAB PO TID NERVES (Reported) Cyclophosphamide (Unknown Strength) VIAL (Unknown Dose) IV Q30D MS (Reported) Doxepin HCl (Silenor) 6 MG TABLET 0.5 TAB PO QPM SLEEP (Reported) Duloxetine Hydrochloride (Cymbalta) 30 MG CAPSULE. 1 CAP PO BID NERVE PAIN (Reported) Eszopiclone (Lunesta) 3 MG TABLET 1 TAB PO QPM SLEEP (Reported) Oxycodone HCl/Acetaminophen (Percocet 10-325 MG Tablet) 1 EACH TABLET 1 TAB PO Q4H PRN PAIN (Reported) [STEROID] WITH CYTOXAN FOR MS (Reported) Current Medications: Current Medications Sig/Arun Start time Last Medication Dose Route Stop Time Status Admin Ampicillin Sodium/ 3,000 MG Q6H 12/29 2000 AC 12/30 Sulbactam Sodium IV 0821 Sodium Chloride 100 ML Ampicillin Sodium/ 3,000 MG Q6 12/29 1800 DC Sulbactam Sodium IV Sodium Chloride 100 ML Ampicillin Sodium/ 3,000 MG ONCE ONE 12/29 1230 DC 12/29 Sulbactam Sodium IV 12/29 1259 1340 Sodium Chloride 100 ML Ampicillin Sodium/ 0 .STK-MED ONE 12/29 1230 DC Sulbactam Sodium .ROUTE Clonazepam 0.25 MG TID 12/29 1853 AC 12/30 PO 01/05 1852 0821 Doxepin HCl 3 MG AT BEDTIME 12/29 220 AC 12/29 PO 211 Duloxetine HCl 30 MG BID 12/29 2200 AC 12/30 PO 0820 Heparin Sodium 5,000 UNIT Q8 12/29 1651 AC 12/30 (Porcine) SC 0556 Lactated Ringer's 1,000 ML Q5H 12/29 1700 AC 12/30 IV 0821 Lidocaine 1 PAT Q24 PRN 12/29 1700 AC 12/29 EXT 1956 Morphine Sulfate 2 MG Q6P PRN 12/30 1100 AC IV Morphine Sulfate 2 MG Q4P PRN 12/29 1700 DC 12/30 IV 0556 Morphine Sulfate 0 .STK-MED ONE 12/29 1137 DC .ROUTE Non-Formulary 0 SEE ADMIN CRITERIA 12/29 1900 CAN Medication ANY Oxycodone HCl 5 MG Q12 PRN 12/29 1700 AC 12/30 PO 0828 Potassium Chloride 40 MEQ ONCE ONE 12/29 1915 DC 03 PO 12/29 1916 1950 Potassium Chloride 10 MEQ Q1H 12/29 1645 DC 03 IV 12/29 1746 2315 Potassium Chloride 10 MEQ ONCE ONE 12/29 1400 DC 03/ IV 12/29 1401 1420 Sodium Chloride 1,000 ML BOLUS ONE 12/29 1515 DC 03/ IV 12/29 1714 1521 Sodium Chloride 1,000 ML BOLUS ONE 12/29 1230 DC 03/04 IV / 1429 1226 Sodium Chloride 1,000 ML BOLUS ONE 12/29 1130 DC 03 IV / 1329 1137 Zolpidem Tartrate 5 MG AT BEDTIME 12/29 2200 AC 12/29 PO 211 Past History Travel History Traveled to [place] past 21 day No Medical History Blood Transfusion Hx: No Neurological: multiple sclerosis EENT: NONE Cardiovascular: NONE Respiratory: NONE Gastrointestinal: NONE Hepatic: NONE Renal: NONE Musculoskeletal: chronic back pain Psychiatric: NONE Endocrine: NONE Blood Disorders: NONE Cancer(s): NONE 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 Home Who Do You Live With? spouse Services at Home: None Smoking Status: Current Everyday Smoker ETOH Use: denies use Illicit Drug Use: denies illicit drug use Functional Ability ADLs Independent: dressing, eating, toileting, bathing. Ambulation: independent IADLs Independent: shopping, housework, finances, food prep, telephone, transportation , medication admin. Employment History Employment: Employed Review of Systems Review of Systems Constitutional: Reports: chills, fever. Denies: unexplained weight loss. EENTM: Denies: icterus, epistaxis. Cardiovascular: Denies: chest pain, edema, syncope. Respiratory: Denies: cough, short of breath. GI: Reports: see HPI. Genitourinary: Reports: hematuria (dark urine). Denies: dysuria. Musculoskeletal: Reports: back pain. Denies: gout. Skin: Denies: jaundice, lesions. Neurological/Psychological: Denies: cognitive dysfunction, confusion. Hematologic/Endocrine: Denies: bruising, bleeding, polyuria, polydipsia. Exam & Diagnostic Data Vital Signs and I&O Vital Signs Date Time Temp Pulse Resp B/P Pulse O2 O2 Flow FiO2 Ox Delivery Rate 12/30 0640 100.8 92 20 130/72 95 / 2245 98.3 89 20 134/80 97 Room Air / 1724 98.9 70 20 158/84 100 Room Air / 1723 98.9 70 20 158/84 100 Room Air 12/29 1654 98.0 88 18 140/78 98 Room Air / 1526 97.9 98 18 143/84 98 Room Air 12/29 1344 98.6 102 18 112/88 97 Room Air Intake & Output 12/30 1600 12/30 0400 12/29 1600 12/29 0400 12/28 1600 12/28 0400 Intake Total 1600 1220 2000 Output Total 1200 625 420 Balance 954 375 2780 Intake, IV 1600 1100 2000 Intake, Oral 120 Output, Urine 1200 625 420 Patient 140 lb 133 lb Weight Physical Exam: Well-developed well-nourished, in no apparent distress. Alert and oriented with normal cognition. Skin with tattoos, no jaundice, rash or lesion. No spider telangiectasias or palmar erythema. No conical master. No adenopathy. Sclera anicteric. Oropharynx normal. No neck masses, thyromegaly or JVD. Heart regular rhythm without murmur. Lungs clear bilaterally. Abdomen with right upper quadrant scar. Bowel sounds present. No distention. No tenderness, mass or organomegaly. No palpable hernias. Extremities without clubbing, cyanosis or edema. Pulses intact. Results Pertinent Lab Results: Laboratory Tests 12/30 12/29 0625 1439 Chemistry Sodium (137 - 145 mmol/L) 135 L Potassium (3.5 - 5.1 mmol/L) 4.3 Chloride (98 - 107 mmol/L) 106 Carbon Dioxide (22 - 30 mmol/L) 23 Anion Gap (5 - 16) 6 BUN (9 - 20 mg/dL) 15 Creatinine (0.7 - 1.2 mg/dL) 0.9 Estimated GFR (>60 ml/min) > 60 BUN/Creatinine Ratio (7 - 25 %) 16.7 Lactic Acid (0.7 - 2.1 mmol/L) 0.8 Total Bilirubin (0.2 - 1.3 mg/dL) 1.9 H Direct Bilirubin (< 0.4 mg/dL) 1.0 H AST (17 - 59 U/L) 59 ALT (21 - 72 U/L) 204 H Alkaline Phosphatase (< 127 U/L) 101 Total Protein (6.3 - 8.2 g/dL) 5.3 L Albumin (3.5 - 5.0 g/dL) 2.8 L Hematology CBC w Diff NO MAN DIFF REQ WBC (4.8 - 10.8 /CUMM) 10.0 RBC (4.70 - 6.10 /CUMM) 3.82 L Hgb (14.0 - 18.0 G/DL) 11.8 L Hct (42 - 52 %) 35.0 L MCV (80.0 - 94.0 FL) 91.6 MCH (27.0 - 31.0 PG) 31.0 RDW (11.5 - 14.5 %) 14.6 H Plt Count (130 - 400 /CUMM) 148 MPV (7.4 - 10.4 FL) 9.4 Gran % (42.2 - 75.2 %) 87.9 H Lymphocytes % (20.5 - 51.1 %) 3.9 L Monocytes % (1.7 - 9.3 %) 7.7 Eosinophils % (0 - 5 %) 0.5 Basophils % (0.0 - 2.0 %) 0 L Absolute Granulocytes (1.4 - 6.5 /CUMM) 8.8 H Absolute Lymphocytes (1.2 - 3.4 /CUMM) 0.4 L Absolute Monocytes (0.10 - 0.60 /CUMM) 0.8 H Absolute Eosinophils (0.0 - 0.7 /CUMM) 0.1 Absolute Basophils (0.0 - 0.2 /CUMM) 0 PUBS MCHC (33.0 - 37.0 G/DL) 33.8 /01 28/ 1416 1138 Chemistry Sodium (137 - 145 mmol/L) 143 Potassium (3.5 - 5.1 mmol/L) 3.2 L Chloride (98 - 107 mmol/L) 102 Carbon Dioxide (22 - 30 mmol/L) 28 Anion Gap (5 - 16) 14 BUN (9 - 20 mg/dL) 23 H Creatinine (0.7 - 1.2 mg/dL) 1.3 H Estimated GFR (>60 ml/min) 56 L BUN/Creatinine Ratio (7 - 25 %) 17.7 Glucose (65 - 99 mg/dL) 136 H Lactic Acid (0.7 - 2.1 mmol/L) 1.3 Calcium (8.4 - 10.2 mg/dL) 9.5 Total Bilirubin (0.2 - 1.3 mg/dL) 3.9 H Direct Bilirubin (< 0.4 mg/dL) 3.0 H AST (17 - 59 U/L) 178 H ALT (21 - 72 U/L) 400 H Alkaline Phosphatase (< 127 U/L) 132 H Troponin I (<0.11 ng/ml) < 0.01 Total Protein (6.3 - 8.2 g/dL) 7.0 Albumin (3.5 - 5.0 g/dL) 4.0 Globulin (1.9 - 4.2 gm/dL) 3.0 Albumin/Globulin Ratio (1.1 - 2.2 %) 1.3 Triglycerides (<150 mg/dL) 114 Amylase (30 - 110 U/L) 529 H Lipase (23 - 300 U/L) 2962 H Hematology CBC w Diff NO MAN DIFF REQ WBC (4.8 - 10.8 /CUMM) 14.3 H RBC (4.70 - 6.10 /CUMM) 4.96 Hgb (14.0 - 18.0 G/DL) 15.2 Hct (42 - 52 %) 45.8 MCV (80.0 - 94.0 FL) 92.5 MCH (27.0 - 31.0 PG) 30.7 RDW (11.5 - 14.5 %) 14.7 H Plt Count (130 - 400 /CUMM) 206 MPV (7.4 - 10.4 FL) 9.1 Gran % (42.2 - 75.2 %) 87.7 H Lymphocytes % (20.5 - 51.1 %) 3.8 L Monocytes % (1.7 - 9.3 %) 7.8 Eosinophils % (0 - 5 %) 0.5 Basophils % (0.0 - 2.0 %) 0.2 Absolute Granulocytes (1.4 - 6.5 /CUMM) 12.5 H Absolute Lymphocytes (1.2 - 3.4 /CUMM) 0.5 L Absolute Monocytes (0.10 - 0.60 /CUMM) 1.1 H Absolute Eosinophils (0.0 - 0.7 /CUMM) 0.1 Absolute Basophils (0.0 - 0.2 /CUMM) 0 PUBS MCHC (33.0 - 37.0 G/DL) 33.2 Urines Urinalysis LIGHT H Urine Color (YEL,AMB,STR) INNA Urine Clarity (CLEAR) CLEAR Urine pH (5.0 - 8.0) 7.0 Ur Specific Kuna (1.001 - 1.035) 1.020 Urine Protein (NEG,<30 MG/DL) TRACE H Urine Ketones (NEG) NEG Urine Nitrite (NEG) NEG Urine Bilirubin (NEG) POS@ICTO H Urine Urobilinogen (0.1 - 1.0 EU/dl) 1.0 Ur Leukocyte Esterase (NEG) NEG Ur Microscopic SEDIMENT EXAMINED Urine RBC (0 - 5 /HPF) 1-3 Urine WBC (0 - 2 /HPF) RARE Ur Epithelial Cells (NONE,FEW) FEW Urine Bacteria (NEG/NONE) RARE H Urine Mucus (FEW,NONE) FEW Urine Hemoglobin (NEG) TRACE-INTACT H Urine Glucose (N MG/DL) NEG Imaging/Other Studies: Ultrasound: PANCREAS: Normal. LIVER: Multiple simple cysts are seen within the liver ranging up to 3.3 cm in diameter. Overall, there is increased echogenicity of the liver, consistent with mild fatty infiltration. There is no intrahepatic bile duct dilation. GALLBLADDER: There is a 1 cm nonobstructive calculus seen within the gallbladder. There is borderline thickening of the gallbladder wall, which measures about 3 mm. There is no pericholecystic fluid or sonographic Stewart's sign. COMMON BILE DUCT: Normal in caliber measuring 0.5 cm in diameter.FREE FLUID: None. IMPRESSION: There is cholelithiasis without convincing sonographic evidence of acute cholecystitis. CT scan: There is centrilobular emphysema seen at the lung bases with a large bulla at the right base. A hypodense lesion in the left lobe of the liver is again noted and likely reflects a cyst. The spleen, pancreas, and right adrenal remain normal in their noncontrast appearance. There is mild fullness of the left adrenal gland. There is at least one stone in an otherwise noninflamed gallbladder. Nondilated loops of large and small bowel are unremarkable in appearance. The appendix and terminal ileum are not inflamed. IMPRESSION: Stable CT appearance of the abdomen, again demonstrating multiple nonobstructive renal calculi. No evidence of an acute intra-abdominal process. Assessment/Plan Assessment/Recommendations: Recurrent biliary colic, now with gallstone pancreatitis. Initial presentation consistent with mild cholangitis, given fever and leukocytosis, but the patient is essentially asymptomatic at present, WBC has normalized, and liver enzymes/ bilirubin are improving. Risk factors for hepatitis, including tattoos and remote drug use. Recommendations * Clear liquid diet, continue IV fluids * Continue intravenous antibiotics; with recurrent fever, change to Cipro 400 mg IV twice a day. * Check INR, hepatitis B surface antigen, hepatitis C antibody * MRCP (ideally, this would have already been performed, but MRI not available over the weekend in this institution). Proceeding directly to ERCP with clinical improvement and pulmonary comorbidities is not appropriate. * With evidence of recurrent cholangitis, consideration for ERCP. In addition would (obviously) pursue ERCP if MRCP is positive for choledocholithiasis, and also if the patient continues to have recurrent pain and fluctuating LFTs, despite negative MRCP. * Outpatient screening colonoscopy Copies To: TWILA SAHA,YEYO Gonzalez; DEEDEE SAHA,Lashell MOON Consult Acknowledgment - Thank you for your consult request.
[2016-12-30 12:03] VITALS: BP 118/60
[2016-12-30 16:15] VITALS: BP 116/58
[2016-12-30 23:42] VITALS: BP 118/66
[2016-12-31 06:16] VITALS: BP 133/73
--- NOTE | 2016-12-31 06:41 | PN- Housestaff ---
SUMAN SAHA,ALISON 12/31/16 0640: Subjective Follow-up For: Pancreatitis Subjective: I saw and examined the patient today morning. He is doing much better, deneis any abdominal pain, reports back, shoulder pain which were chronic. He denies any nausea, vomiting. Able to tolerate food well. Had a small BM. No fevers. Review of Systems Constitutional: Reports: see HPI. Comments: ROS negative except the above. Objective Last 24 Hrs of Vital Signs/I&O Vital Signs Date Time Temp Pulse Resp B/P Pulse O2 O2 Flow FiO2 Ox Delivery Rate 12/31 0616 98.9 66 20 133/73 96 Room Air 12/31 0000 Room Air 12/30 2342 98.2 93 20 118/66 98 Room Air 12/30 1615 98.9 72 20 116/58 96 Room Air / 1203 99.2 82 18 118/60 98 Room Air Intake & Output 12/31 0800 / 0000 / 1600 Intake Total 1850 1950 Output Total 425 900 Balance 1425 1050 Intake, IV 1150 1400 Intake, Oral 700 550 Output, Urine 425 900 Physical Exam General Appearance: Alert, Oriented X3, Cooperative, No Acute Distress Skin: No Rashes, No Breakdown HEENT: Atraumatic, PERRLA, EOMI Neck: Supple Cardiovascular: Normal S1, Normal S2, No Murmurs Lungs: Clear to Auscultation, Normal Air Movement Abdomen: Normal Bowel Sounds, Soft, No Tenderness Neurological: Normal Gait, Normal Speech, Normal Tone Extremities: No Clubbing, No Cyanosis, No Edema Vascular: Normal Pulses, Pulses Symmetrical Current Medications: Current Medications Sig/Arun Start time Last Medication Dose Route Stop Time Status Admin Ampicillin Sodium/ 3,000 MG Q6H 12/30 1999 AC 12/31 Sulbactam Sodium IV 0136 Sodium Chloride 100 ML Clonazepam 0.25 MG TID 12/29 1852 AC 12/30 PO 01/05 Doxepin HCl 3 MG AT BEDTIME 12/29 2199 AC 12/30 PO 2127 Duloxetine HCl 30 MG BID 12/29 2199 AC 12/30 PO 212 Heparin Sodium 5,000 UNIT Q8 12/29 1651 AC 12/31 (Porcine) SC 0508 Lactated Ringer's 1,000 ML Q5H 12/29 1700 AC 12/31 IV 0507 Lidocaine 1 PAT Q24 PRN 12/29 1700 AC 12/29 EXT 1956 Morphine Sulfate 2 MG Q6P PRN 12/30 1100 AC 12/31 IV 0144 Morphine Sulfate 2 MG Q4P PRN 12/29 1700 DC 12/30 IV 0556 Oxycodone HCl 5 MG Q12 PRN 12/29 1700 AC / PO 0828 Zolpidem Tartrate 5 MG AT BEDTIME 12/29 2200 AC / PO 2128 Lines/Diet/Fluids Lines: peripheral lines Assessment/Plan Assessment: Patient is a 61 YO M with PMH significant for MS for the past 14yrs (follows ), chronic back pain, nephrolithiasis came to the ER with intense abdominal pain for the past 24hrs. Pancreatitis - suspected secodary to CBD stone On admission clinical picture with elevated lipase concerning for pancreatitis - 2/3 criteria postive. Suspected secondary to gall stones in the setting of elevated liver enzymes, nonalcoholic picture. 12/30: one of the blood cultures growing GNR. pt had a temp of 100.8 this morning. * Discontinued on fluids. * Started on low fat diet. * IV Unasyn - will follow sensitivities. * GI consulted, recommending MRCP as his LFT's are improving. MRCP is negative for stone in CBD. * If any signs of sepsis evident - need ERCP stat * Avoid hepatotoxic drugs * Appears much stable - we will discharge tomorrow. History of MS * Patient follows * On cytoxan IV once a month with steroids. Anxiety/insomnia * On clonapin TID, Doxepin, Duloxetin, Zolpidem tartarate - we will continue PO meds for now. DVT Prophylaxis * SC heparin Code Status * Full Code Problem List: 1. Pancreatitis Pain Ratin Pain Location: abdomen Pain Goal: Remain pain free Pain Plan: tylenol prn Tomorrow's Labs & Rationales: LFT's - in the setting of gall stonepancreatitis. KATYA SAHA,NEENA 12/31/16 1140: Attending Review Statement Attending Statement Attending MD Statement: examined this patient, discuss w/resident/PA/ANALYSIS DIRECTOR, agreed w/resident/PA/ANALYSIS DIRECTOR, reviewed EMR data (avail), discussed with nursing, discussed with case mgmt, amended to note Attending Assessment/Plan: Patient seen and examined, feeling overall much better. Abdominal pain has resolved. LFTs are improving. Patient is scheduled for MRCP today. Vital Signs Date Time Temp Pulse Resp B/P Pulse O2 O2 Flow FiO2 Ox Delivery Rate 12/31 0616 98.9 66 20 133/73 96 Room Air 12/31 0000 Room Air 12/30 2342 98.2 93 20 118/66 98 Room Air 12/30 1615 98.9 72 20 116/58 96 Room Air 12/30 1203 99.2 82 18 118/60 98 Room Air on exam; aox3, nad. cv; s1,s2, rrr resp; clear abd; soft, nt, bs+ ext; no edema. Laboratory Tests 01/01 640 Chemistry Total Bilirubin (0.2 - 1.3 mg/dL) 1.2 Direct Bilirubin (< 0.4 mg/dL) 0.6 H AST (17 - 59 U/L) 31 ALT (21 - 72 U/L) 128 H Alkaline Phosphatase (< 127 U/L) 72 Total Protein (6.3 - 8.2 g/dL) 4.7 L Albumin (3.5 - 5.0 g/dL) 2.4 L Coagulation PT (9.4 - 12.5 SEC) 11.9 INR (0.90 - 1.17) 1.13 Hematology CBC w Diff NO MAN DIFF REQ WBC (4.8 - 10.8 /CUMM) 8.6 RBC (4.70 - 6.10 /CUMM) 3.45 L Hgb (14.0 - 18.0 G/DL) 10.7 L Hct (42 - 52 %) 31.7 L MCV (80.0 - 94.0 FL) 91.8 MCH (27.0 - 31.0 PG) 31.1 H RDW (11.5 - 14.5 %) 14.3 Plt Count (130 - 400 /CUMM) 157 MPV (7.4 - 10.4 FL) 9.4 Gran % (42.2 - 75.2 %) 75.5 H Lymphocytes % (20.5 - 51.1 %) 9.5 L Monocytes % (1.7 - 9.3 %) 12.5 H Eosinophils % (0 - 5 %) 2.2 Basophils % (0.0 - 2.0 %) 0.3 Absolute Granulocytes (1.4 - 6.5 /CUMM) 6.5 Absolute Lymphocytes (1.2 - 3.4 /CUMM) 0.8 L Absolute Monocytes (0.10 - 0.60 /CUMM) 1.1 H Absolute Eosinophils (0.0 - 0.7 /CUMM) 0.2 Absolute Basophils (0.0 - 0.2 /CUMM) 0 PUBS MCHC (33.0 - 37.0 G/DL) 33.9 Serology Hepatitis A IgM Ab (NONREACTIVE) NONREACTIVE Hep Bs Antigen (NONREACTIVE) NONREACTIVE Hep B Core IgM Ab Conf (NONREACTIVE) NONREACTIVE Hepatitis C Antibody (NONREACTIVE) NONREACTIVE A/p; 61-year-old male with past medical history significant for multiple sclerosis, chronic back pain on Percocet, status post cholecystectomy 7 years ago admitted with abdominal pain, acute pancreatitis and mild cholangitis. Patient is also bacteremic with gram-negative rods. Overall improving, likely has passed the stone. Scheduled for MRCP today. If MRCP is negative then will resume the diet and likely tomorrow he could be discharged. If MRCP does show evidence of stone and obstruction that he will need ERCP. We'll continue the antibiotics for now as he is not bacteremic with gram-negative rods. Pain management is adequate. DVT prophylaxis: Heparin subcutaneous.
[2016-12-31 08:16] LABS: PT 11.9 SEC (9.4-12.5)
[2016-12-31 08:54] LABS: ABSOLUTE BASOPHIL COUNT 0 /CUMM (0.0-0.2); ABSOLUTE EOSINOPHIL COUNT 0.2 /CUMM (0.0-0.7); ABSOLUTE GRANULOCYTE CT 6.5 /CUMM (1.4-6.5); ABSOLUTE LYMPH COUNT 0.8 /CUMM (1.2-3.4); ABSOLUTE MONOCYTE COUNT 1.1 /CUMM (0.10-0.60); BASOPHIL % 0.3 % (0.0-2.0); EOSINOPHIL % 2.2 % (0-5); GRANULOCYTE % 75.5 % (42.2-75.2); HEMATOCRIT 31.7 % (42-52); MEAN CORPUSCULAR HGB 31.1 PG (27.0-31.0); MEAN CORPUSCULAR HGB CONC 33.9 G/DL (33.0-37.0); MEAN CORPUSCULAR VOLUME 91.8 FL (80.0-94.0); MEAN PLATELET VOLUME 9.4 FL (7.4-10.4); PLATELET COUNT 157 /CUMM (130-400); RBC DISTRIBUTION WIDTH 14.3 % (11.5-14.5); RED BLOOD CELL CT 3.45 /CUMM (4.70-6.10); WHITE BLOOD CELL COUNT 8.6 /CUMM (4.8-10.8)
--- NOTE | 2016-12-31 13:37 | PN- Gastroenterology ---
Assessment/Plan Assessment/Recommendations: Gallstone pancreatitis/cholangitis, asymptomatic. Most likely, the patient passed a CBD stone. Blood culture is growing gram-negative rods. Liver enzymes are nearly normal at this point, WBC normal. MRCP appears to be normal, pending official interpretation. Of note, hepatitis serologies are negative. Recommendations * Advance to regular diet * Change antibiotics to Cipro 500 mg by mouth twice a day for a seven-day course ; await results of culture to include sensitivity of organism * If remains asymptomatic and afebrile, probable discharge tomorrow * Follow-up with me in my office within one month * With recurrent symptoms, especially with rise in LFTs, will likely proceed to ERCP * Outpatient screening colonoscopy Thank you very much for allowing my participation in this case. I am signing off. Please call or reconsult as needed during this hospitalization. Subjective Subjective: No abdominal pain, nausea or vomiting. No fever. Objective Vital Signs and I&Os Vital Signs Date Time Temp Pulse Resp B/P Pulse O2 O2 Flow FiO2 Ox Delivery Rate 12/31 0616 98.9 66 20 133/73 96 Room Air 12/31 0000 Room Air 12/30 2342 98.2 93 20 118/66 98 Room Air / 1615 98.9 72 20 116/58 96 Room Air Intake & Output 12/31 1600 12/31 0400 12/30 1600 12/30 0400 12/29 1600 12/29 0400 Intake Total 1510 1850 3550 1220 2000 Output Total 3316 635 7236 625 420 Balance 110 1425 5555 625 0836 Intake, IV 1310 1150 3000 1100 2000 Intake, Oral 200 700 550 120 Output, Urine 4564 344 2818 625 420 Patient 140 lb 133 lb Weight Physical Exam: Sclera anicteric. Abdomen is soft and nondistended with normal bowel sounds, no tenderness. Current Medications: Current Medications Sig/Arun Start time Last Medication Dose Route Stop Time Status Admin Ampicillin Sodium/ 3,000 MG Q6H 12/30 1999 AC 12/31 Sulbactam Sodium IV 08 Sodium Chloride 100 ML Clonazepam 0.25 MG TID 12/29 1852 AC 12/31 PO 01/06 1852 0812 Doxepin HCl 3 MG AT BEDTIME 12/29 2199 AC 12/30 PO 2127 Duloxetine HCl 30 MG BID 12/29 2199 AC 12/31 PO 0812 Heparin Sodium 5,000 UNIT Q8 12/29 1651 AC 12/31 (Porcine) SC 0508 Lactated Ringer's 1,000 ML Q5H 12/29 1700 DC 12/31 IV 0813 Lidocaine 1 PAT Q24 PRN 12/29 1700 AC 12/29 EXT 1956 Morphine Sulfate 1 MG Q6P PRN 12/31 0915 AC 12/31 IV 0948 Morphine Sulfate 2 MG Q6P PRN 12/30 1100 DC 12/31 IV 0144 Oxycodone HCl 5 MG Q12 PRN 12/29 1700 AC 12/30 PO 0828 Sodium Chloride 1,000 ML Q10H 12/31 0915 AC 12/31 IV 12/31 1914 0941 Zolpidem Tartrate 5 MG AT BEDTIME 12/29 220 AC 12/30 PO 2128 Results Pertinent Lab Results: Laboratory Tests 12/31 12/30 0640 0625 Chemistry Sodium (137 - 145 mmol/L) 135 L Potassium (3.5 - 5.1 mmol/L) 4.3 Chloride (98 - 107 mmol/L) 106 Carbon Dioxide (22 - 30 mmol/L) 23 Anion Gap (5 - 16) 6 BUN (9 - 20 mg/dL) 15 Creatinine (0.7 - 1.2 mg/dL) 0.9 Estimated GFR (>60 ml/min) > 60 BUN/Creatinine Ratio (7 - 25 %) 16.7 Total Bilirubin (0.2 - 1.3 mg/dL) 1.2 1.9 H Direct Bilirubin (< 0.4 mg/dL) 0.6 H 1.0 H AST (17 - 59 U/L) 31 59 ALT (21 - 72 U/L) 128 H 204 H Alkaline Phosphatase (< 127 U/L) 72 101 Total Protein (6.3 - 8.2 g/dL) 4.7 L 5.3 L Albumin (3.5 - 5.0 g/dL) 2.4 L 2.8 L Coagulation PT (9.4 - 12.5 SEC) 11.9 INR (0.90 - 1.17) 1.13 Hematology CBC w Diff NO MAN DIFF REQ NO MAN DIFF REQ WBC (4.8 - 10.8 /CUMM) 8.6 10.0 RBC (4.70 - 6.10 /CUMM) 3.45 L 3.82 L Hgb (14.0 - 18.0 G/DL) 10.7 L 11.8 L Hct (42 - 52 %) 31.7 L 35.0 L MCV (80.0 - 94.0 FL) 91.8 91.6 MCH (27.0 - 31.0 PG) 31.1 H 31.0 RDW (11.5 - 14.5 %) 14.3 14.6 H Plt Count (130 - 400 /CUMM) 157 148 MPV (7.4 - 10.4 FL) 9.4 9.4 Gran % (42.2 - 75.2 %) 75.5 H 87.9 H Lymphocytes % (20.5 - 51.1 %) 9.5 L 3.9 L Monocytes % (1.7 - 9.3 %) 12.5 H 7.7 Eosinophils % (0 - 5 %) 2.2 0.5 Basophils % (0.0 - 2.0 %) 0.3 0 L Absolute Granulocytes (1.4 - 6.5 /CUMM) 6.5 8.8 H Absolute Lymphocytes (1.2 - 3.4 /CUMM) 0.8 L 0.4 L Absolute Monocytes (0.10 - 0.60 /CUMM) 1.1 H 0.8 H Absolute Eosinophils (0.0 - 0.7 /CUMM) 0.2 0.1 Absolute Basophils (0.0 - 0.2 /CUMM) 0 0 PUBS MCHC (33.0 - 37.0 G/DL) 33.9 33.8 Serology Hepatitis A IgM Ab (NONREACTIVE) NONREACTIVE Hep Bs Antigen (NONREACTIVE) NONREACTIVE Hep B Core IgM Ab Conf (NONREACTIVE) NONREACTIVE Hepatitis C Antibody (NONREACTIVE) NONREACTIVE 12/29 12/29 1439 1416 Chemistry Lactic Acid (0.7 - 2.1 mmol/L) 0.8 Urines Urinalysis LIGHT H Urine Color (YEL,AMB,STR) INNA Urine Clarity (CLEAR) CLEAR Urine pH (5.0 - 8.0) 7.0 Ur Specific Onyx (1.001 - 1.035) 1.020 Urine Protein (NEG,<30 MG/DL) TRACE H Urine Ketones (NEG) NEG Urine Nitrite (NEG) NEG Urine Bilirubin (NEG) POS@ICTO H Urine Urobilinogen (0.1 - 1.0 EU/dl) 1.0 Ur Leukocyte Esterase (NEG) NEG Ur Microscopic SEDIMENT EXAMINED Urine RBC (0 - 5 /HPF) 1-3 Urine WBC (0 - 2 /HPF) RARE Ur Epithelial Cells (NONE,FEW) FEW Urine Bacteria (NEG/NONE) RARE H Urine Mucus (FEW,NONE) FEW Urine Hemoglobin (NEG) TRACE-INTACT H Urine Glucose (N MG/DL) NEG 12/29 1138 Chemistry Sodium (137 - 145 mmol/L) 143 Potassium (3.5 - 5.1 mmol/L) 3.2 L Chloride (98 - 107 mmol/L) 102 Carbon Dioxide (22 - 30 mmol/L) 28 Anion Gap (5 - 16) 14 BUN (9 - 20 mg/dL) 23 H Creatinine (0.7 - 1.2 mg/dL) 1.3 H Estimated GFR (>60 ml/min) 56 L BUN/Creatinine Ratio (7 - 25 %) 17.7 Glucose (65 - 99 mg/dL) 136 H Lactic Acid (0.7 - 2.1 mmol/L) 1.3 Calcium (8.4 - 10.2 mg/dL) 9.5 Total Bilirubin (0.2 - 1.3 mg/dL) 3.9 H Direct Bilirubin (< 0.4 mg/dL) 3.0 H AST (17 - 59 U/L) 178 H ALT (21 - 72 U/L) 400 H Alkaline Phosphatase (< 127 U/L) 132 H Troponin I (<0.11 ng/ml) < 0.01 Total Protein (6.3 - 8.2 g/dL) 7.0 Albumin (3.5 - 5.0 g/dL) 4.0 Globulin (1.9 - 4.2 gm/dL) 3.0 Albumin/Globulin Ratio (1.1 - 2.2 %) 1.3 Triglycerides (<150 mg/dL) 114 Amylase (30 - 110 U/L) 529 H Lipase (23 - 300 U/L) 2962 H Hematology CBC w Diff NO MAN DIFF REQ WBC (4.8 - 10.8 /CUMM) 14.3 H RBC (4.70 - 6.10 /CUMM) 4.96 Hgb (14.0 - 18.0 G/DL) 15.2 Hct (42 - 52 %) 45.8 MCV (80.0 - 94.0 FL) 92.5 MCH (27.0 - 31.0 PG) 30.7 RDW (11.5 - 14.5 %) 14.7 H Plt Count (130 - 400 /CUMM) 206 MPV (7.4 - 10.4 FL) 9.1 Gran % (42.2 - 75.2 %) 87.7 H Lymphocytes % (20.5 - 51.1 %) 3.8 L Monocytes % (1.7 - 9.3 %) 7.8 Eosinophils % (0 - 5 %) 0.5 Basophils % (0.0 - 2.0 %) 0.2 Absolute Granulocytes (1.4 - 6.5 /CUMM) 12.5 H Absolute Lymphocytes (1.2 - 3.4 /CUMM) 0.5 L Absolute Monocytes (0.10 - 0.60 /CUMM) 1.1 H Absolute Eosinophils (0.0 - 0.7 /CUMM) 0.1 Absolute Basophils (0.0 - 0.2 /CUMM) 0 PUBS MCHC (33.0 - 37.0 G/DL) 33.2 Imaging/Other Studies: MRCP performed but not yet officially interpreted. To my review, there is no evident choledocholithiasis.
--- NOTE | 2016-12-31 13:41 | MRI REPORT ---
EXAMINATION: MR ABDOMEN WITHOUT AND WITH CONTRAST CLINICAL INFORMATION: MRCP with contrast to see any signs of biliary dilatation. Elevated liver enzymes. Getting better. Pancreatitis. Fever. Presumptive diagnosis of choledocholithiasis. History of kidney stones and hernia. COMPARISON: Ultrasound of the right upper quadrant dated 12/29/2016. CT scan of the abdomen and pelvis dated 12/29/2016 and 04/09/2015. TECHNIQUE: An MRI scan of the abdomen was performed using multiple imaging sequences and imaging planes. As per the MRCP protocol, heavily T2-weighted 3-D high-resolution MRCP sequences were obtained in the coronal plane along with thin and thick slab coronal images and coronal MIP reconstructions, which were reviewed on an independent workstation. Magnevist 13 mL intravenous was given and postcontrast enhanced dynamic evaluation was performed. FINDINGS: LIVER, GALLBLADDER, BILIARY TREE: Liver normal size and signal. There are several T2 bright nonenhancing cysts seen, primarily in the left lobe of the liver with a few cysts also seen in the right lobe. These cysts measure up to 3.3 x 2.4 cm in size in segment 2. No focal solid mass or intrahepatic or extrahepatic ductal dilatation. Common bile duct is normal in caliber, measuring 0.7 cm in maximal diameter. Distal common bile duct tapers to 0.3 cm without obstructing stone or mass seen. Hepatic and portal veins patent. The gallbladder is partially distended. As seen on the ultrasound, a 1 cm nonobstructing gallstone is seen within the gallbladder. No gallbladder wall thickening or pericholecystic fluid is present. The cystic duct is well visualized and shows no abnormal filling defects or abnormal dilatation, measuring 0.4 cm in diameter. PANCREAS: The pancreatic duct is at the upper limits of normal, measuring 0.3 cm in diameter. There is a 0.6 x 0.5 cm T2 bright nonenhancing cyst in origin just adjacent to the pancreatic head/body junction (series 3, image 13). Pancreas otherwise unremarkable. No significant peripancreatic edema or focal walled off fluid collection seen. SPLEEN: Normal size and appearance. Splenic vein patent. ADRENAL GLANDS AND KIDNEYS: Adrenal glands normal. Kidneys bilaterally symmetric in size and function. There are scattered bilateral T2 bright nonenhancing cysts seen within the kidneys bilaterally, the largest of which is in the mid right kidney, measuring 1.4 x 1.2 cm. No suspicious focal mass, hydronephrosis, or perinephric stranding. BOWEL LOOPS: Grossly within normal limits. ABDOMINAL WALL: Micrometallic artifact is seen in the right upper quadrant abdominal wall as well as in the periumbilical region. LYMPHOVASCULAR STRUCTURES: Abdominal aorta normal in caliber. No periaortic collections. No abdominal adenopathy or free fluid collection. BONES: Disc spacer device is seen at the L5-S1 level, producing artifact. Bony structures are otherwise grossly unremarkable. IMPRESSION: 1. Common bile duct is at the upper limits of normal in caliber, measuring 0.7 cm in diameter. There is tapering of the distal common bile duct to 0.3 cm. No obstructing stone or mass is seen. 2. Solitary gallstone is seen within the gallbladder, which otherwise is unremarkable. No evidence of cystic duct obstruction. 3. Nonenhancing 0.6 cm cyst seen in the pancreatic head/body junction. Pancreas otherwise unremarkable. No definite imaging evidence of acute pancreatitis. No organized peripancreatic fluid collections. 4. Scattered hepatic cysts and bilateral small renal cysts.
[2016-12-31 15:29] VITALS: BP 138/80
--- NOTE | 2016-12-31 17:04 | Patient Discharge Instructions ---
Discharge Instructions General Discharge Information You were seen/treated for: Gallstone pancreatitis You had these procedures: MRCP Watch for these problems: any sudden pain, nausea, vomiting. Special Instructions: Please follow up with Dr.Swanson bañuelos as an outpatient in a week Please follow up with in a week to schedule a screening colonoscopy. Diet Continue normal diet: No Recommended Diet: Low Fat Activity Full Activity/No Limits: Yes Activity Self Limited: Yes Acute Coronary Syndrome Inclusion Criteria At DC or during hospital stay patient has or had the following: ACS DIAGNOSIS No Discharge Core Measures Meds if any: Prescribed or Continued at Discharge Meds if any: NOT Prescribed or Continued at Discharge Congestive Heart Failure Inclusion Criteria At DC or during hospital stay patient has or had the following: CHF DIAGNOSIS No Discharge Core Measures Meds if any: Prescribed or Continued at Discharge Meds if any: NOT Prescribed or Continued at Discharge Cerebrovascular accident Inclusion Criteria At DC or during hospital stay patient has or had the following: CVA/TIA Diagnosis No Discharge Core Measures Meds if any: Prescribed or Continued at Discharge Meds if any: NOT Prescribed or Continued at Discharge Venous thromboembolism Inclusion Criteria VTE Diagnosis No VTE Type NONE VTE Confirmed by (Test) NONE Discharge Core Measures - Per Current guidelines, there needs to be overlap - treatment for the first 5 days of Warfarin therapy. - If discharged on Warfarin prior to 5 days of - overlap therapy, the patient will need to be - assessed for post discharge needs including - *Post discharge parental anticoagulation - *Warfarin and/or parental anticoagulation education - *Follow up date to check INR post discharge At least 5 days overlap therapy as Inpatient No Meds if any: Prescribed or Continued at Discharge Note: Overlap Therapy is Warfarin and Anticoagulant Meds if any: NOT Prescribed or Continued at Discharge
[2016-12-31] MEDS ORDERED: AUGMENTIN 875-1 EACH PO (17:07)
[2016-12-31 22:59] VITALS: BP 122/80
[2017-01-01 06:47] VITALS: BP 138/86
--- NOTE | 2017-01-01 07:27 | PN- Housestaff ---
See Addendum Subjective Follow-up For: Pancreatitis Subjective: I saw the patient today morning He is sitting comfortably on his bed and having breakfast. No overnight issues. He remains afebrile, requesting approval and return of his home medications. Review of Systems Constitutional: Reports: see HPI. Comments: ROS negative except the above. Objective Last 24 Hrs of Vital Signs/I&O Vital Signs Date Time Temp Pulse Resp B/P Pulse O2 O2 Flow FiO2 Ox Delivery Rate 01/01 0647 98.0 91 20 138/86 96 Room Air 12/31 2259 97.7 92 20 122/80 98 Room Air 12/31 1529 98.9 88 20 138/80 98 Room Air Intake & Output 01/01 0800 01/01 0000 12/31 1600 Intake Total 780 480 500 Output Total 150 700 Balance 780 330 -200 Intake, IV 300 400 Intake, Oral 480 480 100 Output, Urine 150 700 Physical Exam General Appearance: Alert, Oriented X3, Cooperative Skin: No Rashes, No Breakdown HEENT: Atraumatic Neck: Supple Cardiovascular: Normal S1, Normal S2 Lungs: Clear to Auscultation, Normal Air Movement Abdomen: Normal Bowel Sounds, Soft, No Tenderness Neurological: Normal Gait, Normal Speech Extremities: No Clubbing, No Cyanosis, No Edema Vascular: Normal Pulses, Pulses Symmetrical Current Medications: Current Medications Sig/Arun Start time Last Medication Dose Route Stop Time Status Admin Ampicillin Sodium/ 3,000 MG Q6 12/31 1800 AC 01/01 Sulbactam Sodium IV 0548 Sodium Chloride 100 ML Ampicillin Sodium/ 3,000 MG Q6H 12/29 2000 DC 12/31 Sulbactam Sodium IV 0813 Sodium Chloride 100 ML Ciprofloxacin 500 MG BID 12/31 1415 DC 12/31 PO 01/04 1414 1646 Clonazepam 0.25 MG TID 12/29 1853 AC 12/31 PO 01/05 1852 2210 Doxepin HCl 3 MG AT BEDTIME 12/29 220 AC 12/31 PO 2212 Duloxetine HCl 30 MG BID 12/29 220 AC 12/31 PO 2211 Heparin Sodium 5,000 UNIT Q8 12/29 1651 AC 01/01 (Porcine) SC 0548 Lactated Ringer's 1,000 ML Q5H 12/29 1700 DC 12/31 IV 0813 Lidocaine 1 PAT Q24 PRN 12/29 1700 AC 12/29 EXT 1956 Morphine Sulfate 1 MG Q6P PRN 12/31 0915 AC 12/31 IV 2327 Morphine Sulfate 2 MG Q6P PRN 12/30 1100 DC 12/31 IV 0144 Oxycodone HCl 5 MG Q12 PRN 12/29 1700 AC 12/31 PO 1432 Patient Medication 1 ED .STK-MED ONE 12/31 1401 DC Teaching ED 12/31 1402 Sodium Chloride 1,000 ML Q10H 12/31 0915 DC 12/31 IV 12/31 1914 0941 Zolpidem Tartrate 5 MG AT BEDTIME 12/29 2200 AC 12/31 PO 2210 Last 24 Hrs of Lab/Domo Results Last 24 Hrs of Labs/Mics: Laboratory Tests 01/01/17 0618: Total Bilirubin Pending, Direct Bilirubin Pending, AST Pending, ALT Pending, Alkaline Phosphatase Pending, Total Protein Pending, Albumin Pending Lines/Diet/Fluids Lines: peripheral lines Assessment/Plan Assessment: Patient is a 61 YO M with PMH significant for MS for the past 14yrs (follows ), chronic back pain, nephrolithiasis came to the ER with intense abdominal pain for the past 24hrs. Pancreatitis - suspected secodary to CBD stone with cholangitis On admission clinical picture with elevated lipase concerning for pancreatitis - 2/3 criteria postive. Suspected secondary to gall stones in the setting of elevated liver enzymes, nonalcoholic picture. 12/30: one of the blood cultures growing GNR - pansensitive. pt had a temp of 100.8 on december 30 * on low fat diet. * He is pansensitive - so changed to PO augmentin for a total of 7days. * MRCP is negative for stone in CBD. * Avoid hepatotoxic drugs * Appears much stable - we will discharge today. History of MS * Patient follows * On cytoxan IV once a month with steroids. Anxiety/insomnia * On clonapin TID, Doxepin, Duloxetin, Zolpidem tartarate - we will continue PO meds for now. DVT Prophylaxis * SC heparin Code Status * Full Code Problem List: 1. Pancreatitis Pain Ratin Pain Location: abdomen Pain Goal: Pain 4 or less Pain Plan: tylenol morphine 1mg IV Tomorrow's Labs & Rationales: none Tomorrow's Labs & Rationales: none
--- NOTE | 2017-01-01 11:00 | Discharge Summary ---
Visit Information Visit Dates Admission Date: 12/29/16 Discharge Date: 01/01/17 Hospital Course Course Attending Physician: NEENA ALDANA MD Primary Care Physician: Lashell MARK MD Consulting Request: Consulting Specialty: Gastroenterology Consulting Physician: Reason for Consult: cholangitis Hospital Course: Patient is a 61 YO M with PMH significant for MS for the past 14yrs (follows ), chronic back pain, nephrolithiasis came to the ER with intense abdominal pain for the past 24hrs. ER Course Vital Signs T - 97.6, HR 120, BP 118/90mmHg on room air. Significant labs white count 14.3, Lipase of 2900, k of 3.2, Cr 1.3 LFT's show total bili of 3.9, direct bili 3.0, AST 178, ALT 400, ALP 132 Abdominal ultrasound There is cholelithiasis without convincing sonographic evidence of acute cholecystitis. CT abdomen and pelvis Stable CT appearance of the abdomen, again demonstrating multiple nonobstructive renal calculi. No evidence of an acute intra-abdominal process. He is admitted to general medicine, the follwoing issues are addressed. Pancreatitis - suspected secodary to CBD stone with cholangitis On admission clinical picture with elevated lipase concerning for pancreatitis - 2/3 criteria postive. Suspected secondary to gall stones in the setting of elevated liver enzymes, nonalcoholic picture. He was started on RL @200ml/hr, NPO initially. Next day as she started to improve started on clears followed by full and low fat diet as tolerated well. Cholangitis Patient found to have elevated LFT's on admisssion with one of the blood cultures grew GNR - pansensitive, also had a temp of 100.8 on december 30. Intially started on IV unasyn but he is pansensitive - so changed to PO augmentin for a total of 7days. MRCP is negative for stone in CBD, but did show a stone in gall bladder. History of MS Patient follows . On cytoxan IV once a month with steroids. Anxiety/insomnia * On clonapin TID, Doxepin, Duloxetin, Zolpidem tartarate which were continued during his stay and returned back. DVT Prophylaxis * SC heparin Code Status * Full Code Complications: NONE Allergies: Coded Allergies: NO KNOWN ALLERGIES (NO) (06/05/16) Significant Procedures: MRCP - NO STONE IN GALL CBD IDENTIFIED Pertinent Lab Results: ER Course Vital Signs T - 97.6, HR 120, BP 118/90mmHg on room air. Significant labs at admission white count 14.3, Lipase of 2900, k of 3.2, Cr 1.3 LFT's show total bili of 3.9, direct bili 3.0, AST 178, ALT 400, ALP 132 Abdominal ultrasound IMPRESSION: There is cholelithiasis without convincing sonographic evidence of acute cholecystitis. CT abdomen and pelvis IMPRESSION: Stable CT appearance of the abdomen, again demonstrating multiple nonobstructive renal calculi. No evidence of an acute intra-abdominal process. MRCP on 12/31/16 IMPRESSION: 1. Common bile duct is at the upper limits of normal in caliber, measuring 0.7 cm in diameter. There is tapering of the distal common bile duct to 0.3 cm. No obstructing stone or mass is seen. 2. Solitary gallstone is seen within the gallbladder, which otherwise is unremarkable. No evidence of cystic duct obstruction. 3. Nonenhancing 0.6 cm cyst seen in the pancreatic head/body junction. Pancreas otherwise unremarkable. No definite imaging evidence of acute pancreatitis. No organized peripancreatic fluid collections. 4. Scattered hepatic cysts and bilateral small renal cysts. Disposition Summary Disposition Principal Diagnosis: PANCREATITIS Additional Diagnosis: MULTIPLE SCLEROSIS ANXIETY/DEPRESSION Discharge Disposition: home or self care Discharge Instructions General Discharge Information Code Status: Full Code Patient's Diet: LOW FAT DIET IS RECOMMENDED Patient's Activity: Activity as tolerated Follow-Up Instructions/Appts: Please follow up with in a week Please follow up with for a colonoscopy Please follow up with regarding MS as per the schedule Medications at Discharge Discharge Medications: Continue taking these medications: Oxycodone HCl/Acetaminophen (Percocet 10-325 MG Tablet) 1 EACH TABLET 1 Tablet ORAL Q4H as needed for PAIN Comments: NOT GIVEN IN HOSPITAL Duloxetine Hydrochloride (Cymbalta) 30 MG CAPSULE. 1 Capsule ORAL TWICE DAILY Comments: Last Taken: 01/01/17 Time: 1000 AM Clonazepam (Klonopin) 0.5 MG TABLET 0.5 Tablet ORAL THREE TIMES DAILY Comments: Last Taken: 01/01/17 Time: 1000 AM Eszopiclone (Lunesta) 3 MG TABLET 1 Tablet ORAL Every night Comments: NOT GIVEN IN HOSPITAL Doxepin HCl (Silenor) 6 MG TABLET 0.5 Tablet ORAL Every night Comments: Last Taken: 01/01/17 Time: 2200 PM Cyclophosphamide (Cyclophosphamide) (Unknown Strength) VIAL Unknown Dose INTRAVEN ONCE A MONTH Comments: NOT GIVEN IN HOSPITAL [STEROID] INTRAVEN ONCE A MONTH Comments: NOT GIVEN IN HOSPITAL Start taking the following new medications: Amoxicillin/Potassium Clav (Augmentin 875-125 Tablet) 875 MG-125 MG TABLET 1 Tablet ORAL TWICE DAILY Qty = 8 No Refills Comments: NOT GIVEN IN HOSPITAL Copies To: TWILA SAHA,VENESSA Gonzalez; SURESH SAHA,ARTEMIO Jurado; Lashell MARK MD Attending MD Review Statement Documenting Attending: KATYA SAHA,NEENA
--- NOTE | 2017-01-01 13:18 | NUR ---
NURSING NOTE: PATIENT A/OX3, IV DISCONTINUED. PAIN TOLERBALE PER PATIENT. ALL BELONGINGS LEFT WITH PATIENT INCLUDING MEDICATIONS FROM HOSPITAL SAFE. PRESCRIPTION PAPER GIVEN TO PATIENT. DISCHARGE INSTRUCTIONS EDUDCATED TO PATIENT.
== END 2017-01-01 13:15 | DRG 444 ==
LOC: ENRESERVDT → ENRESERVTM → ERH 10:54 → ERHI 14:47 → 2NB 14:47 → ENPENDDIS 14:47 → 2NB 17:18
PROVIDERS: Internal Medicine; Physician Assistant; Student in an Organized Health Care Education/Training Program; ADMIT Hospitalist
PROC: BF37YZZ Magnetic Resonance Imaging (MRI) of Pancreas using Other Contrast (ICD-10-PCS; principal; 2016-12-31)
DX: K83.0 Cholangitis (principal); K85.10 Biliary acute pancreatitis without necrosis or infection; N18.3 Chronic kidney disease, stage 3 (moderate); N20.0 Calculus of kidney; G35 Multiple sclerosis; M54.89 Other dorsalgia
CPT/HCPCS: 2NBSP; 75661; 36415; 74176; 74183; 81001; 82436; 87040; 93005; 93010; 96361; 96365; 96375; A9579; J1644; J7120